=== PATIENT | female | born 1980 | race Caucasian/White ===

== ENCOUNTER 2020-09-22 11:06 | Emergency (ER) | payer SELFPAY ==
[2020-09-22 11:19] VITALS: BP 128/88; PULSE 101; RESP 18; TEMP 37.5; O2SAT 100
[2020-09-22] MEDS: ONDANSETRON HCL ODT 4 MG TABLET SUBLINGUAL (11:46)
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
== END 2020-09-22 12:04 | disposition short-term general hospital (02) ==
PROVIDERS: Emergency Provider Nurse Practitioner; PCP Family Medicine
DX: M54.2 Cervicalgia (principal); Y04.8XXA Assault by other bodily force, initial encounter
CPT/HCPCS: 99215; A9270; G0463; L0140

== ENCOUNTER 2020-09-22 12:18 | Emergency (ER) | payer SELFPAY ==
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
[2020-09-22 12:35] VITALS: BP 117/76; PULSE 92; RESP 14; TEMP 36.9; O2SAT 99
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
[2020-09-22] MEDS: HYDROmorphone HCL INJ (*CRX) 1 MG/ML SYR 0.5 MG IV PUSH (13:10)
[2020-09-22 13:37] LABS: Estimated Glomerular Filt Rate > 60
[2020-09-22 14:05] VITALS: BP 105/65; PULSE 80; RESP 12; O2SAT 99
[2020-09-22] MEDS: PROMETHAZINE HCL 25 MG/ML AMPUL 12.5 MG IV PUSH (14:06)
[2020-09-22 15:05] VITALS: BP 114/70; PULSE 80; RESP 12; O2SAT 99
== END 2020-09-22 15:08 | disposition home or self-care (01) ==
PROVIDERS: Emergency Provider General Practice; PCP Family Medicine
DX: T71.193A Asphyxiation due to mechanical threat to breathing due to other causes, assault, initial encounter (principal); S60.512A Abrasion of left hand, initial encounter; S60.511A Abrasion of right hand, initial encounter; S00.81XA Abrasion of other part of head, initial encounter; S10.91XA Abrasion of unspecified part of neck, initial encounter; Y04.8XXA Assault by other bodily force, initial encounter
CPT/HCPCS: 70496; 70498; 81025; 96374; 96375; 99284; J1170; J2550; Q9967